=== PATIENT | female | born 1970 | race Caucasian/White ===

== ENCOUNTER → 2017-02-20 | Outpatient (CLI) | payer BC ==
--- NOTE | 2017-02-21 10:16 | KCIC ---
DATE: DATE: 02/20/2017 EXAM: MAMMO MARIN SCREENING BILATERAL HISTORY: Screening COMPARISON: One year earlier This study was interpreted with the benefit of Computerized Aided Detection (CAD ). FINDINGS: Breast Density: SCATTERED The breast parenchyma shows scattered fibroglandular densities. Breast parenchyma level B. In addition to routine views implant displacement views were obtained. No mass or suspect calcifications are seen. There is not been a significant change compared to the previous exam IMPRESSION: Benign finding BI-RADS CATEGORY: 2 BENIGN FINDING(S) RECOMMENDED FOLLOW-UP: 12M 12 MONTH FOLLOW-UP PQRS compliance statement: Patient information was entered into a reminder system with a target due date 02/20/2018 for the next mammogram. Mammography is a sensitive method for finding small breast cancers, but it does not detect them all and is not a substitute for careful clinical examination. A negative mammogram does not negate a clinically suspicious finding and should not result in delay in biopsying a clinically suspicious abnormality. "Our facility is accredited by the [employer] Mammography [employer]." CARMEL
== END | disposition home or self-care (01) ==
LOC: KCIC MAMMO 12:28
PROVIDERS: ATTEND Obstetrics & Gynecology
DX: Z12.31 Encounter for screening mammogram for malignant neoplasm of breast (principal)
CPT/HCPCS: 77063; G0202; 77067

== ENCOUNTER → 2018-02-25 | Outpatient (CLI) | payer BC ==
--- NOTE | 2018-02-25 17:12 | KCIC ---
History: Routine screening. Technique: Bilateral digital mammographic routine views were obtained with CAD - computer aided detection. In addition to routine views, displaced views were obtained as well. Less breast tissue is included in a mammogram with implants. Comparison: February 20, 2017. Findings: Breast Tissue Density B :The breast tissue is composed of mixed fatty and fibroglandular tissue. The implants appear grossly intact. There is asymmetric tissue density seen in the inferior left breast on the MLO view only. There are no suspicious microcalcifications or areas of architectural distortion. Impression: Asymmetric tissue density on the left. Recommend the patient return for a spot MLO view and a displaced true lateral view. Additional views or ultrasound may be necessary as well. The patient and the clinical service will be contacted by the radiology staff for further instructions. BI-RADS Category 0: Incomplete: Need additional imaging evaluation. A mammogram does not have 100% sensitivity and therefore a negative imaging study should not delay further work up of a suspicious abnormality. The patient will receive a letter with the results in the mail. Patient information is entered into the reminder system with a target due date for the next screening mammogram. The patient will receive a reminder. "Our facility is accredited by the [employer] Mammography [employer]." Electronically signed by: Cruz Kellogg III, MD (02/25/2018 5:09 PM) [id number]
== END | disposition home or self-care (01) ==
LOC: KCIC MAMMO 12:07
PROVIDERS: ATTEND Obstetrics & Gynecology
DX: Z12.31 Encounter for screening mammogram for malignant neoplasm of breast (principal)
CPT/HCPCS: 77067

== ENCOUNTER → 2018-03-15 | Outpatient (CLI) | payer BC ==
--- NOTE | 2018-03-15 09:48 | KCIC ---
Left breast diagnostic digital mammograms: Reason for examination: Parenchymal asymmetry on screening mammogram. Comparison is made to mammographic examination dated 02/25/2018. True lateral and coned compression MLO view of the left breast were obtained. With these additional views, the area of asymmetry appears to dissipate however further evaluation with ultrasound will follow. IMPRESSION: No suspicious abnormalities with the additional mammographic images. Ultrasound to follow. BI-RADS Category 0: Incomplete. Needs additional imaging evaluation. Left breast ultrasound: Ultrasound examination was performed in the area of mammographic concern and at the left axilla. There is some ductal ectasia. In the 6:00 position 1 cm from the nipple however, there is a small bilobed 5 x 2.8 mm hypoechoic circumscribed nodule. This may represent a complicated cyst but a small fibroadenoma or papilloma cannot be excluded. No suspicious lesions are seen. No abnormal appearing lymph nodes are seen in the axilla. IMPRESSION: 5 x 2.8 mm hypoechoic circumscribed lesion probably representing a complicated cyst however cannot exclude a small papilloma or fibroadenoma. Recommend close follow-up with reevaluation with ultrasound in 6 months. BI-RADS Category 3: Probably Benign. "Our facility is accredited by the [employer] Mammography Program." This patient's information has been entered into a reminder system for the patient to be notified with the results of her examination and a target date for the next mammogram. Electronically signed by: Carlene Ayala MD (03/15/2018 9:45 AM) [id number]
== END | disposition home or self-care (01) ==
LOC: KCIC MAMMO 08:48
PROVIDERS: ATTEND Obstetrics & Gynecology
DX: N60.42 Mammary duct ectasia of left breast (principal); N63.24 Unspecified lump in the left breast, lower inner quadrant
CPT/HCPCS: 76641; 77065

== ENCOUNTER → 2018-09-16 | Outpatient (CLI) | payer BC ==
--- NOTE | 2018-09-16 13:14 | KCIC ---
EXAM: Left breast sonogram. HISTORY: 48-year-old female presents for follow-up evaluation of a small lesion within the left breast demonstrated on a sonogram dated 03/15/2018. TECHNIQUE: Sonographic imaging of the left breast targeted to the subareolar location was performed. COMPARISON: 03/15/2018. FINDINGS: There has been no significant change in a slightly bilobed hypoechoic lesion measuring 4.3 mm in maximum dimension at the 6:00 position of the left breast 1 cm from the nipple. No additional lesion is seen within this location. IMPRESSION: 1. No significant change in a 4.3 mm hypoechoic lesion within the 6:00 anterior left breast. The 6 month course of stability favors a benign etiology such as a complicated cyst or benign fibrocystic lesion. The possibility of a small solid nodule is not completely excluded. 2. BI-RADS Category 3: Probably benign finding(s). Repeat short-term follow-up with a left breast sonogram in 6 months is recommended to confirm a year of stability. This follow up interval corresponds with the previously established bilateral mammography interval. Electronically signed by: Felisa Delgado MD (09/16/2018 1:12 PM) [id number]
== END | disposition home or self-care (01) ==
LOC: KCIC US 12:49
PROVIDERS: ATTEND Internal Medicine
DX: N64.89 Other specified disorders of breast (principal)
CPT/HCPCS: 76641

== ENCOUNTER → 2019-03-21 | Outpatient (CLI) | payer BC ==
--- NOTE | 2019-03-21 13:41 | KCIC ---
Bilateral diagnostic digital mammograms with 3-D tomosynthesis: Reason for examination: Follow-up left breast nodule. Comparison is made to previous studies dated 02/25/2018 and 02/20/2017. Bilateral mammograms in CC and oblique projections were obtained with 2-D imaging and 3-D tomosynthesis imaging on a Siemens Inspiration unit and reviewed on the workstation. Interpretation was made with the benefit of CAD. The skin and nipples show no abnormalities. No abnormal axillary lymph nodes are seen. The breast parenchyma shows scattered fatty and fibroglandular density. (Breast density: Category B.) There are no dominant masses, suspicious calcifications or architectural distortion. Impression: No evidence of malignancy. Ultrasound to follow. BI-RAD Category 0: Incomplete. Needs additional imaging evaluation. Left breast ultrasound: Comparison is made to previous studies dated 09/16/2018 and 03/15/2018. Ultrasound examination of the left breast and axilla was performed. At the 6:00 position 1 cm from the nipple, there continues to be bilateral 4.8 mm hypoechoic lesion which is well-circumscribed and lies in parallel orientation. This has not changed. No other cystic or solid lesions are seen and no abnormal appearing lymph nodes are seen in the axilla. IMPRESSION: No change in the small benign-appearing circumscribed nodule at 6:00 position. Recommend routine mammographic follow-up. BI-RADS Category 2: Benign. "Our facility is accredited by the [employer] Mammography [employer]." This patient's information has been entered into a reminder system for the patient to be notified with the results of her examination and a target date for the next mammogram. Electronically signed by: Carlene Ayala MD (03/21/2019 1:38 PM) [id number]
== END | disposition home or self-care (01) ==
LOC: KCIC MAMMO 12:01
PROVIDERS: ATTEND Nurse Practitioner Women's Health
DX: R92.8 Other abnormal and inconclusive findings on diagnostic imaging of breast (principal); N63.20 Unspecified lump in the left breast, unspecified quadrant
CPT/HCPCS: 76641; 77066; G0279; 77062

== ENCOUNTER → 2021-05-25 | Outpatient (CLI) | payer BC ==
--- NOTE | 2021-05-25 15:28 | KCIC ---
Bilateral digital screening mammograms with 3-D tomosynthesis: Reason for examination: Routine screening. Comparison is made to previous studies dated back to 02/14/2016. Bilateral mammograms in CC and oblique projections were obtained with 2-D imaging and 3-D tomosynthes is imaging on a Siemens Inspiration unit and reviewed on the workstation. Interpretation was made wit h the benefit of CAD. The skin and nipples show no abnormalities. No abnormal axillary lymph nodes are seen. Bilateral luisa st implants remain present and appear to be intact. The breast parenchyma shows scattered fatty and f ibroglandular density. (Breast density: Category B.) There are some coarse calcifications anteriorly in the subareolar 6:00 position of the left breast which may represent a small degenerating fibroaden cristino. There are no dominant masses, suspicious calcifications or architectural distortion. Impression: No evidence of malignancy. Recommend routine screening. BI-RAD Category 2: Benign. "Our facility is accredited by the [employer] Mammography Program." This patient's information has been entered into a reminder system for the patient to be notified wit h the results of her examination and a target date for the next mammogram. Electronically signed by: Carlene Ayala MD (05/25/2021 3:25 PM) [id number]
== END ==
LOC: KCIC MAMMO 14:40
PROVIDERS: ATTEND Obstetrics & Gynecology
DX: Z12.31 Encounter for screening mammogram for malignant neoplasm of breast (principal)
CPT/HCPCS: 77063; 77067